=== PATIENT | male | born 1980 | race American Indian/Alaskan Native ===

== ENCOUNTER 2018-06-05 15:47 | Emergency (ER) | payer SELFPAY ==
[2018-06-05] MEDS ORDERED: Tetracaine HCl/PF 0.5% 4 ML Bottle EYERT ONE (16:10)
--- NOTE | 2018-06-05 16:20 | EDM.PDOC ---
ED HPI GENERAL MEDICAL PROBLEM - General Chief Complaint: Eye Problems Stated Complaint: EYE HURTS Time Seen by Provider: 06/05/18 16:00 Source of Information: Reports: Patient History Limitations: Reports: No Limitations - History of Present Illness INITIAL COMMENTS - FREE TEXT/NARRATIVE: Michael is a 38-year-old male who presents to the emergency department today with sudden onset of right eye redness, irritation and drainage since 11:00 today. Patient did take out his contact lens and is concerned that he may have scratched his eye. Patient denies any concern for foreign body. Patient does report that his vision in that eye is blurry. Patient denies any fever, chills, patient has not taken anything for pain. Onset: Today, Sudden Right Eye Pain Score (Numeric/FACES): 8 - Related Data Allergies Allergy/AdvReac Type Severity Reaction Status Date / Time No Known Allergies Allergy Verified 06/05/18 16:14 Past Medical History - Past Health History Medical/Surgical History: Denies Medical/Surgical History Social & Family History - Tobacco Use Smoking Status *Q: Current Every Day Smoker Years of Tobacco use: 10 Packs/Tins Daily: 1 - Caffeine Use Caffeine Use: Reports: Coffee, Soda, Tea - Recreational Drug Use Recreational Drug Use: No ED ROS GENERAL - Review of Systems Review Of Systems: ROS reveals no pertinent complaints other than HPI. ED EXAM GENERAL W FULL EYE - Physical Exam Exam: See Below Exam Limited By: No Limitations General Appearance: Alert, WD/WN, No Apparent Distress Eye Exam: Bilateral Eye: EOMI, PERRL Eyelids: Bilateral: Normal Appearance Cornea Exam: Right: Corneal Abrasion (Patient's eye was anesthetized with tetracaine, fluorescein stain was applied, uptake to right iris just lateral to the pupil approximately 4 mm in length), Examined with Flourescein Extraocular Movements: Bilateral: Intact Pupils: Normal Accommodation Pupillary Size: Bilateral: 4 mm Pupillary Reaction: Bilateral: Brisk Head: Atraumatic Neck: Normal Inspection Respiratory/Chest: No Respiratory Distress Cardiovascular: Regular Rate, Rhythm Extremities: Normal Inspection Neurological: Alert, Oriented, CN II-XII Intact Psychiatric: Normal Affect, Normal Mood Skin Exam: Warm, Dry, Intact Course - Vital Signs Last Recorded V/S: Last Vital Signs Temp 35.6 C 06/05/18 16:08 Pulse 79 06/05/18 16:08 Resp 16 06/05/18 16:08 BP 120/80 06/05/18 16:08 Pulse Ox 97 06/05/18 16:08 Michael is an otherwise healthy 38-year-old male who presents to the emergency department today with right eye redness, pain, drainage. Exam reveals a corneal abrasion. Remaining exam is reassuring and unremarkable. Patient's last tetanus was 2 weeks ago after sustaining a eyebrow laceration. Patient was instructed to avoid putting his contacts for the next several days. We will start antibiotic drops to prevent infection. Ibuprofen/Tylenol/ice packs for pain as needed. Reasons to return to the emergency department were discussed, patient is agreeable to plan of care and discharged in stable condition. - Orders/Labs/Meds Meds: Medications Discontinued Medications Generic Name Dose Route Start Last Admin Trade Name Delmi PRN Reason Stop Dose Admin Tetracaine HCl 1 ml 06/05/18 16:10 06/05/18 16:13 Tetracaine 0.5% Steri-Unit Alyx EYERT 06/05/18 16:11 2 drop ASDIRECTED ONE Administration Departure - Departure Time of Disposition: 16:30 Disposition: Home, Self-Care 01 Condition: Good Clinical Impression: Corneal abrasion Qualifiers: Encounter type: initial encounter Laterality: right Qualified Code(s): S05.01XA - Injury of conjunctiva and corneal abrasion without foreign body, right eye, initial encounter - Discharge Information Instructions: Corneal Abrasion Referrals: PCP,None [Primary Care Provider] - Additional Instructions: Do not use contacts for the next 5-7 days. Start antibiotic eye medication today. Ibuprofen/Tylenol for pain. Ice packs may also be helpful. Return to the ED with any worsening symptoms.
== END 2018-06-05 16:27 | disposition home or self-care (01) ==
LOC: JP.ED 15:47 → EDBD 15:47 → JP.ED 16:27
DX: S05.01XA Injury of conjunctiva and corneal abrasion without foreign body, right eye, initial encounter (principal); F17.210 Nicotine dependence, cigarettes, uncomplicated; X58.XXXA Exposure to other specified factors, initial encounter
CPT/HCPCS: 99283; A9270

== ENCOUNTER 2022-08-04 12:55 | Emergency (ER) | payer OTHER, MEDICAID | END 2022-08-04 14:34 | LOC: JP.ED 12:55 | DX: F10.129 Alcohol abuse with intoxication, unspecified (principal) | CPT/HCPCS: 36415; 80307; 85018; 99283 ==